=== PATIENT | female | born 1965 | race Caucasian/White ===

== ENCOUNTER 2016-09-19 13:00 | Outpatient (CLI) | payer OTHER | END 2016-09-19 18:13 | disposition home or self-care (01) | LOC: SMA 13:00 | PROVIDERS: ATTEND Specialist | DX: Z12.31 Encounter for screening mammogram for malignant neoplasm of breast (principal) | CPT/HCPCS: 77067; G0202 ==

== ENCOUNTER 2018-05-13 12:06 | Outpatient (CLI) | payer OTHER | END 2018-05-13 21:25 | disposition home or self-care (01) | LOC: SMA 12:06 | PROVIDERS: ATTEND Specialist | DX: Z12.31 Encounter for screening mammogram for malignant neoplasm of breast (principal) | CPT/HCPCS: 77067 ==